=== PATIENT | male | born 1945 | race Hispanic/Latino ===

== ENCOUNTER → 2019-07-25 | Outpatient (CLI) | payer OTHER | END | disposition home or self-care (01) | LOC: OIH 12:32 | PROVIDERS: ATTEND Family Medicine | DX: Z01.818 Encounter for other preprocedural examination (principal); I10 Essential (primary) hypertension; I51.7 Cardiomegaly; M47.814 Spondylosis without myelopathy or radiculopathy, thoracic region | CPT/HCPCS: 71046 ==

== ENCOUNTER 2019-08-02 11:00 | Observation (INO) | payer OTHER ==
[2019-08-01 11:44] VITALS: BP 128/62
[2019-08-01 11:48] LABS: BASOPHILS % (AUTO) 0.7 % (0.0-5.0); EOSINOPHILS % (AUTO) 5.3 % (0.0-8.0); HEMATOCRIT 41.6 % (42-54); LYMPHOCYTES % (AUTO) 37.5 % (21.0-51.0); MEAN CORPUSCULAR HEMOGLOBIN 27.8 pg (27.0-33.0); MEAN CORPUSCULAR VOLUME 86.8 fL (79-99); MONOCYTES % (AUTO) 7.3 % (3.0-13.0); NEUTROPHILS % (AUTO) 49.1 % (40.0-77.0); PLATELET COUNT (AUTO) 174 K/uL (130-400); RED BLOOD CELL COUNT(AUTO) 4.79 MIL/uL (4.50-6.20); WHITE BLOOD COUNT (AUTO) 6.8 K/uL (4.8-10.8)
[2019-08-01 11:59] LABS: INR 1.02 (0.85-1.15); PROTHROMBIN TIME 10.7 SEC (9.6-11.6)
[2019-08-01 12:07] LABS: APPEARANCE,URINE Clear (CLEAR); BILIRUBIN,URINE Negative (NEGATIVE); COLOR,URINE Dark Yellow (YELLOW); GLUCOSE, URINE (UA) Negative (NEGATIVE); KETONES,URINE Negative (NEGATIVE); LEUKOCYTE ESTERASE ,URINE Negative (NEGATIVE); NITRATE,URINE Negative (NEGATIVE); OCCULT BLOOD,URINE Negative (NEGATIVE); PH,URINE 5.5 (5.0-8.0); PROTEIN,URINE Trace mg/dL (NEGATIVE)
[2019-08-01 12:57] LABS: BACTERIA,URINE Rare /HPF (None Seen); MUCUS,URINE Moderate LPF (None Seen); RBC,URINE 0-1 /HPF (0-1); SQUAMOUS EPITHELIAL CELL,UR Rare /HPF (0-2); WBC,URINE 0-1 /HPF (0-1)
[~2019-08-02] VITALS: Ht 170.2 cm; Wt 102.4 kg
[~2019-08-02 11:00] MED LIST: AMLO1CAP PO; ASPI-555 PO; CARV25TA PO; MULT-1258 PO; ginkgo biloba PO
[2019-08-05] VITALS (23 sets, daily range): BP systolic 106–137; BP diastolic 64–78
[2019-08-05] MEDS ORDERED: CEFAZOLIN SODIUM 1 GM VIAL IVP SCH (05:00)
[2019-08-05] MEDS ORDERED: PROPOFOL 10 MG/ML 20ML VIAL IV ONE (08:30)
[2019-08-05] MEDS ORDERED: LIDOCAINE PF 2% 5ML ABBOJECT ONE (08:30)
[2019-08-05] MEDS ORDERED: SUCCINYLCHOLINE 200MG/10ML SYR ONE (08:30)
[2019-08-05] MEDS ORDERED: ROCURONIUM 10MG/1ML SYR 10 MG/ML ML ONE (08:30)
[2019-08-05] MEDS ORDERED: FENTANYL CITRATE PF 50 MCG/1 ML 2ML VIAL ONE ×2 (08:31→11:51)
[2019-08-05] MEDS ORDERED: ROPIVACAINE 0.5% 5MG/ML 30ML IJ ONE (08:40)
[2019-08-05] MEDS ORDERED: TRANEXAMIC ACID 1000MG/10ML ONE ×2 (08:44→09:46)
[2019-08-05] MEDS ORDERED: CEFAZOLIN SODIUM 1 GM VIAL ONE ×5 (08:44→11:33)
[2019-08-05] MEDS ORDERED: CELECOXIB 200 MG CAP ONE (08:45)
[2019-08-05] MEDS ORDERED: ACETAMINOPHEN EXTRA STRENGTH 500 MG TABLET ONE (08:45)
[2019-08-05] MEDS ORDERED: KETOROLAC TROMETHAMINE 15MG/ML ONE (08:45)
[2019-08-05] MEDS ORDERED: EPHEDRINE SULFATE 50 MG/ML AMPULE ONE (09:50)
[2019-08-05] MEDS ORDERED: GLYCOPYRROLATE 1 MG/5 ML SYRINGE ONE (10:16)
[2019-08-05] MEDS ORDERED: SODIUM CHLORIDE 0.9% 1000ML 1,000 ML IV ONE (10:47)
[2019-08-05] MEDS ORDERED: MEPERIDINE-PF 25 MG/ML SYG ONE (11:07)
[2019-08-05] MEDS ORDERED: KETOROLAC TROMETHAMINE 30MG/ML ONE (11:33)
[2019-08-05] MEDS: SODIUM CHLORIDE 0.9% 1000ML 1,000 ML IV SCH ×2 (11:36→22:17)
[2019-08-05] MEDS ORDERED: OXYCODONE HCL 5 MG TAB PO PRN (11:45)
[2019-08-05] MEDS ORDERED: TEMAZEPAM 15 MG CAPSULE PO PRN (11:45)
[2019-08-05] MEDS ORDERED: POTASSIUM CHLORIDE 20MEQ/100ML 100 ML IV PRN (11:45)
[2019-08-05] MEDS ORDERED: KETOROLAC TROMETHAMINE 15MG/ML IV PRN (11:45)
[2019-08-05] MEDS ORDERED: FERROUS FUMARATE 324 MG TABLET PO PRN (11:45)
[2019-08-05] MEDS ORDERED: POTASSIUM CHLORIDE 10% ELIXIR 20 MEQ/15 ML UDCUP PO PRN (11:45)
[2019-08-05] MEDS ORDERED: LIDOCAINE HCL-MPF 1% 2ML VIAL IV PRN (11:45)
[2019-08-05] MEDS ORDERED: ONDANSETRON HCL 4 MG/2 ML VIAL IVP PRN (11:45)
[2019-08-05] MEDS ORDERED: TRAMADOL HCL 50 MG TABLET PO PRN (11:45)
[2019-08-05] MEDS ORDERED: DiphenhydrAMINE HCL 50 MG/ML VIAL IVP PRN (11:45)
[2019-08-05] MEDS ORDERED: NEOSTIGMINE 5MG/5ML SYR IV ONE (11:46)
[2019-08-05] MEDS: ACETAMINOPHEN EXTRA STRENGTH 500 MG TABLET PO SCH ×2 (14:11→20:12)
[2019-08-05] MEDS ORDERED: BENZOCAINE/MENTH/CETYLPYRD CL 1 EACH LOZENGE MM PRN (14:15)
--- NOTE | 2019-08-05 17:44 | NUR ---
[id number] patient signed(daughter at bedside) TYLER Letter, I faxed TYLER Letter to [phone] and placed in chart under consent tab
--- NOTE | 2019-08-05 18:04 | NUR ---
cm note met with patient he is independent with ambulation and adls. no provider no services, no dme. ambulates per self. resides at home with 16 yo grandson, daughter reva present, and states dc plan is for pt go back home, but someone is going to be with him at all times after dc.states no dc needs. spoke to pt about orders for HH and walker and 3 in 1 and in agreement. pt prefers in network provider and agreed to [facility] [phone]. referral faxed, and pending approval. Addendum: 08/05/19 at 1808 by LILLIAM COLUNGA CM Amended: Links added. Addendum: 08/05/19 at 1819 by LILLIAM COLUNGA CM also call made to ER registration to verify admit status, spoke to vanesa and states pt shows authorization # as OP/observation admission.
[2019-08-05] MEDS: CEFAZOLIN SODIUM 1 GM VIAL IVP SCH (19:18)
[2019-08-05] MEDS: OXYCODONE HCL 5 MG TAB PO PRN (19:20)
[2019-08-05] MEDS: PREGABALIN 25 MG CAP PO SCH (20:10)
[2019-08-05] MEDS: FAMOTIDINE 20MG TAB 20 MG TAB PO SCH (20:10)
[2019-08-05] MEDS: CELECOXIB 200 MG CAP PO SCH (20:11)
[2019-08-05] MEDS: ASPIRIN 81MG TAB.CHEW PO SCH (20:11)
[2019-08-05] MEDS: CARVEDILOL 25 MG TABLET PO SCH (20:11)
[2019-08-05] MEDS: HYDROMORPHONE 1 MG/1 ML AMP IVP PRN (22:17)
--- NOTE | 2019-08-05 23:24 | NUR ---
ACTIVITY PATIENT WAS AMBULATED BY PT EARLIER IN THE DAY SO I DID NOT GET HIM TO DANGLE HIS LEG OF THE EDGE OF THE BED.
[2019-08-06 00:08] VITALS: BP 148/75
[2019-08-06] MEDS: HYDROMORPHONE 1 MG/1 ML AMP IVP PRN ×4 (00:16→23:18)
[2019-08-06] MEDS: OXYCODONE HCL 5 MG TAB PO PRN ×3 (01:13→20:07)
[2019-08-06] MEDS ORDERED: HYDROMORPHONE HCL 2 MG/ML VIAL ONE ×2 (03:37→05:23)
[2019-08-06] MEDS: CEFAZOLIN SODIUM 1 GM VIAL IVP SCH (03:44)
[2019-08-06] MEDS: ACETAMINOPHEN EXTRA STRENGTH 500 MG TABLET PO SCH ×3 (03:45→20:04)
[2019-08-06 03:54] LABS: HEMATOCRIT 34.3 % (42-54); MEAN CORPUSCULAR HEMOGLOBIN 28.2 pg (27.0-33.0); MEAN CORPUSCULAR HGB CONC 32.7 g/dL (32.0-36.0); MEAN CORPUSCULAR VOLUME 86.4 fL (79-99); PLATELET COUNT (AUTO) 131 K/uL (130-400); RED BLOOD CELL COUNT(AUTO) 3.97 MIL/uL (4.50-6.20); RED CELL DISTRIBUTION WIDTH 12.9 % (11.0-15.5); WHITE BLOOD COUNT (AUTO) 6.8 K/uL (4.8-10.8)
[2019-08-06 04:08] VITALS: BP 139/79
[2019-08-06 04:37] LABS: POTASSIUM 3.6 mmol/L (3.5-5.1)
[2019-08-06] MEDS: SODIUM CHLORIDE 0.9% 1000ML 1,000 ML IV SCH (06:36)
[2019-08-06] MEDS: CALCIUM CARBONATE 500 MG TABLET PO PRN ×2 (07:41→20:04)
[2019-08-06] MEDS: POTASSIUM CHLORIDE 20 MEQ ERTAB PO PRN ×2 (07:41→17:51)
[2019-08-06 07:50] VITALS: BP 145/76
[2019-08-06] MEDS: TAMSULOSIN HCL 0.4 MG CAP.ER.24H PO SCH (09:00)
[2019-08-06] MEDS: POLYETHYLENE GLYCOL 3350 17 GM POWD.PACK PO SCH (10:16)
[2019-08-06] MEDS: PREGABALIN 25 MG CAP PO SCH ×2 (10:18→20:03)
[2019-08-06] MEDS: FAMOTIDINE 20MG TAB 20 MG TAB PO SCH ×2 (10:18→20:04)
[2019-08-06] MEDS: AMLODIPINE-BENAZEPRIL 5-10 MG PO SCH (10:18)
[2019-08-06] MEDS: CELECOXIB 200 MG CAP PO SCH ×2 (10:18→20:04)
[2019-08-06] MEDS: MULTIVITAMIN WITH MINERALS TABLET PO SCH (10:18)
[2019-08-06] MEDS: ASPIRIN 81MG TAB.CHEW PO SCH ×2 (10:18→20:04)
[2019-08-06] MEDS: CARVEDILOL 25 MG TABLET PO SCH ×2 (10:19→20:03)
[2019-08-06 11:20] VITALS: BP 127/74
--- NOTE | 2019-08-06 11:38 | NUR ---
CM Note: [facility] approval for HH and DME CM spoke to Raquel w/[facility], pt has approval for HH. CM spoke to Cholo /[facility] DME, pt has approval for standard walker no wheels and [id number], pending to be delivered this afternoon in pt's room. Pt safe to dc to home via private car once DME delivered. Primary nurse made aware of the above. Dr Felipe made aware as well. CM to cont to follow up.
--- NOTE | 2019-08-06 13:30 | NUR ---
PT NOTE: PATIENT ATTEMPTED STAIR TRAINING THIS PM AND WAS UNABLE TO SAFELY ASCEND FIRST STEP SECONDARY TO WEAKNESS. PATIENT WILL BENEFIT FROM CONTINUED PT TREATMENT TO PROMOTE IMPROVED STRENGTH FOR SAFER GAIT AND STEP ASCENDING/DESCENDING PRIOR TO D/C HOME. Addendum: 08/06/19 at 1612 by MITCHELL MATHEWS PT Amended: Links added.
--- NOTE | 2019-08-06 15:00 | NUR ---
CM Note: cancelled HCD, pending ins auth for [facility] CM met with pt and daughter, pt is still very weak, PT tried to do stairs training. Pt and daughter requested to go to rehab prior to dc home instead, pt signed NEEL for [facility]. Dr Felipe udpated, agreeable for SNF, order entered. Faxed order, clinicals, PT, and PASRR, confirmation received. Spoke to Rafia lindsay/[facility], will come eval pt and send to ins for auth, aware dcp tomorrow/once approved. Pt pending acceptance and ins auth at this time. Primary nurse aware. CM to cont to follow up.
--- NOTE | 2019-08-06 15:06 | NUR ---
I SPOKE TO DR RODRIGUEZ ON THE PHONE AND INFORMED HIM THAT PT WAS ONLY ABLE TO WALK 60 FT TODAY AND IS STILL DROWSY FROM THE PAIN MEDS HE TOOK AT 0745 THIS AM; AND HAS NOT BEEN ABLE TO PRACTICE STAIRS YET; HE SAID TO HOLD D/C TILL TOMORROW THEN.
[2019-08-06 16:04] VITALS: BP 115/59
[2019-08-06 20:12] VITALS: BP 101/57
[2019-08-07 00:16] VITALS: BP 101/54
[2019-08-07] MEDS: OXYCODONE HCL 5 MG TAB PO PRN ×2 (01:06→10:23)
[2019-08-07] MEDS: ACETAMINOPHEN EXTRA STRENGTH 500 MG TABLET PO SCH ×2 (03:20→11:45)
[2019-08-07] MEDS: HYDROMORPHONE 1 MG/1 ML AMP IVP PRN ×2 (03:21→05:19)
[2019-08-07 04:12] VITALS: BP 105/58
[2019-08-07 08:03] VITALS: BP 115/61
[2019-08-07] MEDS: POLYETHYLENE GLYCOL 3350 17 GM POWD.PACK PO SCH (08:20)
[2019-08-07] MEDS: CELECOXIB 200 MG CAP PO SCH (08:21)
[2019-08-07] MEDS: TAMSULOSIN HCL 0.4 MG CAP.ER.24H PO SCH (08:21)
[2019-08-07] MEDS: AMLODIPINE-BENAZEPRIL 5-10 MG PO SCH (08:21)
[2019-08-07] MEDS: PREGABALIN 25 MG CAP PO SCH (08:22)
[2019-08-07] MEDS: CARVEDILOL 25 MG TABLET PO SCH (08:22)
[2019-08-07] MEDS: ASPIRIN 81MG TAB.CHEW PO SCH (08:22)
[2019-08-07] MEDS: MULTIVITAMIN WITH MINERALS TABLET PO SCH (08:22)
[2019-08-07] MEDS: FAMOTIDINE 20MG TAB 20 MG TAB PO SCH (08:22)
--- NOTE | 2019-08-07 10:35 | NUR ---
CM Note: [facility] pending ins auth CM spoke to Rafia lindsay/[facility], clinicals sent to insurance yesterday for auth. Pt pending ins auth at this time. Primary nurse aware. Dr Felipe made aware. CM to cont to follow up.
[2019-08-07 11:09] VITALS: BP 103/60
[2019-08-07 11:48] VITALS: BP 103/60
--- NOTE | 2019-08-07 11:52 | NUR ---
CM NOTE: VERANDA INS AUTH CM SPOKE TO [facility] W/[facility]. PT HAS INS AUTH. PT SAFE TO TRANSFER VIA [facility] TRANSPORT VAN ONCE MD CLEAR. PRIMARY NURSE AWARE. DR RODRIGUEZ MADE AWARE. CM TO CONT TO FOLLOW UP.
--- NOTE | 2019-08-07 13:05 | NUR ---
FALL PATIENT WAS FOUND ON FLOOR BY NURSING STAFF. HE WAS ASSISTED BACK TO CHAIR BY PHYSICAL THERAPY ASSISTANTS. HE DENIES PAIN. ADMITS TO HITTING THE BACK OF HIS HEAD ON THE LEFT SIDE. NO SWELLING OR BRUISING NOTED. V/S ARE STABLE. WILL NOTIFY DR. RODRIGUEZ.
--- NOTE | 2019-08-07 13:15 | NUR ---
PT NOTE: PATIENT FOUND ON FLOOR THIS PM BY NSVeronique. SYED FOREMAN WAS IN THE ROOM WITH PATIENT AND REQUESTED HELP FROM PT TEAM TO ASSIST PATIENT FROM FLOOR SAFELY TO CHAIR. PATIENT WAS ASSISTED TO A SAFE SEATING POSITION FROM FLOOR WITHOUT COMPLAINTS OF PAIN AND MINIMAL COMPLAINTS OF DISCOMFORT TO R KNEE. PATIENT RECEIVED ICE PACKS ON R KNEE BY NSVeronique AND IS COMFORTABLY SITTING UP IN THE CHAIR. GEMA NGUYEN IS ALSO AWARE OF PATIENTS STATUS. PT WILL HOLD OFF ON TX THIS PM UNTIL FURTHER INSTRUCTION FROM DR. RODRIGUEZ. Addendum: 08/07/19 at 1352 by MITCHELL MATHEWS PT Amended: Links added.
--- NOTE | 2019-08-07 13:15 | NUR ---
MD LOWELL RODRIGUEZ WAS CALLED TO HIS CELL PHONE WITH NO ANSWER. NATHALIE ROSARIO WAS NOTIFIED AND NATHALIE LEMUS WAS GIVEN A MESSAGE FOR DR. RODRIGUEZ AND WILL NOTIFY HIM.
--- NOTE | 2019-08-07 13:20 | NUR ---
DR. RODRIGUEZ OR NURSE CALLED TO NOTIFY THIS NURSE THAT DR. RODRIGUEZ WAS AWARE OF PATIENT FALLING TO FLOOR. NO NEW ORDERS AT THIS TIME.
[2019-08-07] MEDS ORDERED: ASPI-555 PO (16:55)
[2019-08-07] MEDS ORDERED: HYDR-4457 PO (16:55)
[2019-08-07 17:29] VITALS: BP 114/65
--- NOTE | 2019-08-07 18:40 | NUR ---
INSTRUCTIONS DISCHARGE INSTRUCTIONS GIVEN TO PATIENT AND FAMILY USING TEACH BACK. REPORT HAS BEEN CALLED TO [facility]. IV HAS BEEN REMOVED WITH TIP INTACT. DIRECT PRESSURE APPLIED UNTIL BLEEDING CONTROLLED THEN SITE COVERED WITH GAUZE AND SECURED WITH TAPE. F/U APPOINTMENT MADE. NEW PRESCRIPTIONS PLACED IN PACKET GOING TO [facility]. NO QUESTIONS OR CONCERNS VOICED. PENDING [facility] [employer] FROM [facility] FOR TRANSPORT.
[2019-08-08] MEDS ORDERED: BISACODYL 10 MG SUPP.RECT RC PRN (11:45)
== END 2019-08-07 19:10 ==
LOC: EDSTATUS 11:00 → DAHIP 08-05 06:47 → 4AH 08-05 13:29
PROVIDERS: ADMIT Orthopaedic Surgery; ATTEND Orthopaedic Surgery
DX: M17.11 Unilateral primary osteoarthritis, right knee (principal); I10 Essential (primary) hypertension
CPT/HCPCS: 27447; 36415 ×2; 80048; 81001; 85025; 85027; 85610; 87641; 88304; 88311; 96374; 96375; 96376 ×3; 97039; 97116 ×3; 97161; 97530 ×4; A4215; A4221; A4222; A4223; A4600; A4649 ×4; A4663; A4930 ×2; A9272; C1776; G0168; G0378 ×20; G8978; G8979; G8980; G8981; G8982; G8983; J0330; J0690 ×6; J1170 ×9; J1885 ×3; J2001; J2175; J2704; J2710; J2795; J3010 ×2; J3490 ×4; J7030; J7120

== ENCOUNTER → 2019-09-06 | Outpatient (CLI) | payer OTHER ==
[~2019-09-06] MED LIST changes: +HYDR-4457 PO; -ginkgo biloba PO
== END | disposition home or self-care (01) ==
LOC: RAH 10:59
PROVIDERS: ATTEND Family Medicine
DX: R60.9 Edema, unspecified (principal)
CPT/HCPCS: 93970